=== PATIENT | female | born 1960 | race Two or more races ===

== ENCOUNTER 2016-12-24 06:28 | Day surgery (SDC) | payer OTHER ==
--- NOTE | 2016-12-23 12:25 | Pre-Procedure Note/Attestation ---
Pre-Procedure Note/Attestation Complete Prior to Procedure Planned Procedure: left Procedure Narrative: left shoulder scope, sad, mini urbano, resection of loose fragment, possible rtc repair Indications for Procedure Pre-Operative Diagnosis: left shoulder loose fragments, partial thickness rtc tear Attestation I attest that I discussed the nature of the procedure; its benefits; risks and complications; and alternatives (and the risks and benefits of such alternatives ), prior to the procedure, with the patient (or the patient's legal outside sales representative). I attest that, if there was a reasonable possibility of needing a blood transfusion, the patient (or the patient's legal outside sales representative) was given the [place] [employer] [facility] standardized written summary, pursuant to the Venkat Finklea Blood Safety Act ([place] Health and Safety Code # 1645, as amended). I attest that I re-evaluated the patient just prior to the surgery and that there has been no change in the patient's H&P, except as documented below: NONE PAUL ROSSI Dec 23, 2016 12:25
[2016-12-24] VITALS (11 sets, daily range): BP systolic 122–152; BP diastolic 72–84
[~2016-12-24] VITALS: Ht 157.5 cm; Wt 102.5 kg
[~2016-12-24 06:28] MED LIST: ceFAZolin 1gm in D5W 55ml IVP ONE; celeBREX 200mg Cap **SURGERY PATIENTS ONLY ORAL ONE; oxyCONTIN 20mg tab ORAL ONE
[2016-12-24] MEDS ORDERED: IBUPROFEN200 MG ORAL (07:22)
[2016-12-24] MEDS ORDERED: CYMBALTA30 MG ORAL (07:22)
[2016-12-24] MEDS ORDERED: ASPIR 8181 MG ORAL (07:22)
[2016-12-24] MEDS ORDERED: LIPITOR80 MG ORAL (07:22)
[2016-12-24] MEDS ORDERED: NORCO 5-325 TA1 EAC1 ORAL (07:22)
[2016-12-24] MEDS ORDERED: Bupivacaine w/Epi 0.5% 30ml Vial INJ ONE (07:42)
[2016-12-24] MEDS ORDERED: Ropivacaine 5mg/ml Vial 20ml INJ ONE (07:43)
[2016-12-24] MEDS ORDERED: Succinylcholine 20mg/ml 10ml vial ONE (08:00)
[2016-12-24] MEDS ORDERED: Sodium Chloride 10ml vial INJ ONE (08:00)
[2016-12-24] MEDS ORDERED: Ketorolac 30mg Inj ONE (08:00)
[2016-12-24] MEDS ORDERED: Midazolam 2mg/2ml Inj ONE (08:00)
[2016-12-24] MEDS ORDERED: fentaNYL 100 mcg/2 mL IV ONE (08:00)
[2016-12-24] MEDS ORDERED: Metoclopramide 10mg/2ml Inj ONE (08:00)
[2016-12-24] MEDS ORDERED: Neostigmine 1mg/ml 10ml Inj ONE (08:00)
[2016-12-24] MEDS ORDERED: Propofol 200mg/20ml IV ONE (08:00)
[2016-12-24] MEDS ORDERED: LR 1000ml ONE (08:00)
[2016-12-24] MEDS ORDERED: Glycopyrrolate 0.2mg/ml 1ml Vial ONE (08:00)
[2016-12-24] MEDS ORDERED: fentaNYL 250mcg/5ml ONE (08:00)
[2016-12-24] MEDS ORDERED: Lidocaine 1% MPF 10mg/ml 5ml ONE (08:00)
[2016-12-24] MEDS ORDERED: NS Irrig 4000ml IRRIG ONE ×2 (08:00→08:41)
[2016-12-24] MEDS ORDERED: Dexamethasone 4mg/ml vial ONE (08:00)
[2016-12-24] MEDS ORDERED: Zemuron 50mg/5ml Inj IV ONE (08:00)
--- NOTE | 2016-12-24 08:52 | Anethesia Preoperative Eval ---
Anesthesia Pre-op PMH/ROS General Date of Evaluation: Dec 24, 2016 Anesthesiologist: Ari ASA Score: ASA 3 Mallampati Score Class I : Soft palate, uvula, fauces, pillars visible Class II: Soft palate, uvula, fauces visible Class III: Soft palate, base of uvula visible Class IV: Only hard plate visible Mallampati Classification: Class III Surgeon: Chrissy Diagnosis: Left incomplete rotator cuff repair Surgical Procedure: Left shoulder arthroscopy, subacromial decompression, mini- urbano repair Anesthesia History: none Family History: no anesthesia problems Allergies: Coded Allergies: No Known Allergies (Unverified , 12/23/16) Medications: see eMAR Past Medical History Cardiovascular: Reports: other - HLD, Denies: HTN, CAD, [place], valve dz, arrhythmia Pulmonary: Reports: HO[place], Denies: asthma, COPD, other Gastrointestinal/Genitourinary: Reports: GERD, Denies: CRI, ESRD, other Neurologic/Psychiatric: Denies: dementia, CVA, depression/anxiety, TIA, other Endocrine: Denies: DM, hypothyroidism, steroids, other HEENT: Denies: cataract (L), cataract (R), glaucoma, POINT LAY IRA (L), POINT LAY IRA (R), other Hematology/Immune: Denies: anemia, DVT, bleeding disorder, other Musculoskeletal/Integumentary: Denies: OA, RA, DJD, DDD, edema, other Other: obesity - morbid PSxH Narrative: c/s, umbilical hernia repair Anesthesia Pre-op Phys. Exam Physician Exam Last Vital Signs Date Time Temp Pulse Resp B/P (MAP) Pulse Ox O2 Delivery O2 Flow Rate FiO2 12/24/16 07:17 98.1 73 18 130/84 95 Room Air Constitutional: NAD Cardiovascular: other - tachy Respiratory: other - dimished breath sounds bilaterally, bilateral rhonchi Airway Exam Mallampati Score: Class III MO: limited Neck: obese TMD: <2FB ROM: limited Teeth: missing, intact, broken Anesthesia Pre-op A/P Labs see chart Studies Pre-op Studies: EKG - sr Risk Assessment & Plan Assessment: ASA III Plan: GA, Left interscelene nerve block Status Change Before Surgery: No Pre-Antibiotics Drug: Ancef 2g Given Within 1 Hr of Incision: Yes HUGO MONTGOMERY M.D. Dec 24, 2016 08:52
--- NOTE | 2016-12-24 08:53 | Immediate Post-Op Evaluation ---
Immediate Post-Op Evalulation Immediate Post-Op Evalulation Procedure: Left shoulder arthrosocpy, subacromial decompression, mini-urbano repair Date of Evaluation: Dec 24, 2016 IV Fluids: 1L Blood Products: 0 Estimated Blood Loss: 5 Urinary Output: 0 Blood Pressure Systolic: 136 Blood Pressure Diastolic: 88 Pulse Rate: 91 Respiratory Rate: 16 O2 Sat by Pulse Oximetry: 96 Temperature (Fahrenheit): 97 Pain Score (1-10): 0 Nausea: No Vomiting: No Complications 0 Patient Status: awake, reacts, patent, none Hydration Status: adequate Drug: Ancef 2g Given Within 1 Hr of Incision: Yes Time Given: 08:25 HUGO MONTGOMERY M.D. Dec 24, 2016 08:53
[2016-12-24] MEDS ORDERED: LR 1000ml 1,000 ML IVLG SCH (08:54)
--- NOTE | 2016-12-24 08:54 | 48 Hour Post Anesthesia Eval ---
Post Anesthesia Evaluation Procedure: Left shoulder arthrosocpy, subacromial decompression, mini-urbano repair Date of Evaluation: Dec 24, 2016 Airway: patent Nausea: No Vomiting: No Pain Intensity: 0 Hydration Status: adequate Cardiopulmonary Status: at baseline Mental Status/LOC: patient returned to baseline Post-Anesthesia Complications: 0 Follow-up care needed: ready to discharge HUGO MONTGOMERY M.D. Dec 24, 2016 08:54
[2016-12-24] MEDS ORDERED: Midazolam 2mg/2ml Inj IVP PRN (09:00)
[2016-12-24] MEDS ORDERED: DiphenhydrAMINE 50mg/ml Inj IVP PRN (09:00)
[2016-12-24] MEDS ORDERED: LORazepam Inj 2mg/ml 1ml IV PRN (09:00)
[2016-12-24] MEDS ORDERED: fentaNYL 100 mcg/2 mL IV PRN (09:00)
[2016-12-24] MEDS ORDERED: Hydromorphone 0.5mg/0.5ml inj IVP PRN (09:00)
[2016-12-24] MEDS ORDERED: Ketorolac 30mg Inj IV PRN (09:00)
[2016-12-24] MEDS ORDERED: Metoclopramide 10mg/2ml Inj IVP PRN (09:00)
--- NOTE | 2016-12-24 09:40 | Brief Operative Note ---
Immediate Post Operative Note Operative Note Chief Complaint: left shoulder pain Pre-op Diagnosis: left shoulder loose fragment Procedure: left shoulder scope, resection of loose fragment, sad, stan urbano Post-op Diagnosis: same as pre-op Findings: consistent w/pre-op dx studies Surgeon: md niko [employer] Senior Sergeant: scar kilpatrick Anesthesiologist: md isa Anesthesia: general Specimen: yes Complications: none Condition: stable Fluids: NS Estimated Blood Loss: minimal Drains: none Implant(s) used?: No ELVIA KILPATRICK Dec 24, 2016 09:40
[2016-12-24] MEDS ORDERED: HYDROmorphone 1mg/ml Carpuject SUBQ PRN (16:01)
[2016-12-24] MEDS ORDERED: D5 1/2NS 1,000 ML IV SCH (16:01)
[2016-12-24] MEDS ORDERED: Tylenol #3 tab (300mg/30mg) ORAL PRN (16:01)
[2016-12-24] MEDS ORDERED: Norco 5mg/325mg tab ORAL PRN (16:01)
--- NOTE | 2016-12-24 19:45 | Operative Note - Dictated ---
DATE OF OPERATION: 12/24/2016 PREOPERATIVE DIAGNOSES: 1. Left shoulder arthritis. 2. Left shoulder loose fragment. 3. Left shoulder possible rotator cuff tear. POSTOPERATIVE DIAGNOSES: 1. Left shoulder diffuse glenohumeral arthritis involving two-third of the glenoid and anterior one-half of the humeral head with bone to bone contact. 2. Left shoulder anterior loose fragment measuring 1 x 1.5 centimeter anteriorly in front of the coracoid. 3. Significant degenerative labral tearing anteriorly as well as posteriorly. 4. Unstable meso-acromion with impingement. 5. Articular-sided rotator cuff tear measuring 25% articular sided rotator cuff without full-thickness tear. PROCEDURES: 1. Left shoulder arthroscopy and extensive intra-articular shaving. 2. Left shoulder resection of anterior loose fragment measuring 1 x 1.5 centimeter. 3. Left shoulder debridement and repair of the degenerative labral tear anteriorly as well as posteriorly to a stable zone. 4. Left shoulder subacromial bursoscopy, bursectomy and resection of unstable meso-acromion. 5. Left shoulder mini-Urbano procedure (resection inferior 30% of distal end of clavicle to remove bone spur). 6. Debridement of the articular sided rotator cuff repair without need for repair of the rotator cuff. SURGEON: Rod Lowe M.D. MAJOR DONOR COORDINATOR: Nani Mireles PA-C. Technical Healthcare Consultant was present during the actual operative portion of the case and was important and essential part of the operation. During the operation, the furniture removalist's assistant held and operated the arthroscopic camera for visualization, assisted by manipulating the arm to help with visualization, and helped with essential parts of the repair process as necessary such as operating surgical instruments under surgeon supervision, suture management, and wound closures. ANESTHESIOLOGIST: Cheryl Chapman M.D. ANESTHESIA: General LMA anesthesia combined with interscalene block. EBL: Minimal. COMPLICATIONS: None. SURGICAL INDICATION: The patient is a 56-year-old female who sustained the above injury to her shoulder. The patient was treated non-operative initially, but this did not alleviate the patients symptoms. Therefore, after discussing all non-surgical and surgical options, and discussing all foreseeable risk and benefits of surgery, the patient opted for surgical treatment as described above. PATIENT POSITIONING: The patient was brought to the operating room table and was placed on the operating room table. All pressure points were well padded. General anesthesia was induced and patient was then placed in the lateral decubitus position. All pressure points were well padded again and an axillary roll was placed. Patient shoulder was then prepped and draped in the usual sterile fashion. Time out was performed and the appropriate preoperative antibiotic was given by the anesthesiologist. EXAMINATION OF SHOULDER UNDER ANESTHESIA: The shoulder was examined under anesthesia with all muscles well relaxed. The shoulder was forward flexed, abducted and was placed through full range of external and internal rotation. The anterior, posterior, and inferior stability of the shoulder was checked. The exam revealed no evidence of adhesive capsulitis and no evidence of instability. PORTAL PLACEMENT: The posterior portal was established 2cm inferior and 1cm medial to the edge of the posterior acromion. 1 cm skin incision was made using an eleven blade and using the blunt obturator, the cannula was gently placed through the capsule. The midglenoid portal was established just lateral to the coracoid process under direct visualization. Direction of the cannula was first established using a spinal needle, and subsequently, the cannula was placed through the capsule with a blunt obturator. DIAGNOSTIC ARTHROSCOPY: The biceps tendon was probed and pulled through the joint for visualization. It appeared normal. The biceps anchor was palpated with a probe and was visualized. There was some degenerative superior labral tearing. However, there was no detachment of the biceps tendon. The posterior labrum and axillary recess was visualized. There was synovitis in the axillary recess, however, the posterior labrum was intact. There was extensive chondral damage over the glenoid in the two-third of the glenoid anteriorly as well as inferiorly as well as superiorly. This was consistent with grade 4 chondromalacia of the glenoid. The articular surface of the rotator cuff was visualized and probed next. There was articular-sided rotator cuff tear involving 25% of the thickness of the supraspinatus. The Humeral head articular surface was then visualized. There was humeral head articular cartilage damage involving the anterior half of the humeral head with grade 4 chondromalacia in that area. Next the anterior labrum, middle gleno-humeral ligament, subscapularis tendon, and the anterior inferior gleno-humeral ligament were evaluated. There was significant degenerate changes of the anterior labrum. There was a loose fragment anteriorly. The middle glenohumeral ligament and subscapularis anterior and inferior glenohumeral ligament were intact. At this point, the scope was moved to the midglenoid portal and the posterior structures including the posterior labrum, posterior capsule and posterior cuff were visualized. These structures were completely normal. There was loose fragment in subscapularis recess and the anterior aspect of the shoulder. The middle and anterior inferior glenohumeral ligament was visualized. There was hypertrophy of the glenohumeral ligaments, although there were generally intact. OPERATIVE DEBRIDEMENTS AND REPAIR: Care was given to all partial thickness tears and frayed structures in the shoulder joint. The frayed rotator cuff and labrum was debrided using a shaver initially through the anterior portal and subsequently through the posterior portal to complete the debridement. This allowed for smooth debridement of all affected structures and all loose fragments were removed. The 1.5 centimeter loose fragment in the subscapularis recess was removed with a grasper and was sent to pathology for identification. DIAGNOSTIC BURSOSCOPY AND SUBACROMIAL DECOMPRESSION: The subacromion bursa was entered from posterior portal. The anterior portal was established under CA ligament using a switching stick. Subacromial arthroscopy was initiated. There was extensive bursitis and thickened and inflamed bursal tissue. The CA ligament appeared to be scuffed and frayed. The anterior acromion was visualized and there was very unstable meso-acromion that could be identified. At this point, a shaver was placed through the initial anterior cannula and debridement was performed. The lateral portal was then established and using combination of shaver and electrocautery, CA ligament was released from undersurface of the meso-acromion and complete bursectomy was accomplished. Again, the meso-acromion was very unstable. At this point, using combination of a grasper and burs, the complete meso-acromion resection was performed without any complication. This provided excellent decompression of the subacromial space. This was taken all the way medially to level of the AC joint and to the posterior aspect of the clavicle. The subacromial decompression was not performed beyond posterior aspect of the clavicle. At this point, all bursa over the rotator cuff was removed. Rotator cuff was examined with the probe. The arm was placed through internal and external rotation and there was no evidence of rotator cuff tear. The scope was then placed in the lateral portal at this point and the meso-acromion resection was checked and appeared to be perfect. EVALUATION OF DISTAL CLAVICLE AND DISTAL CLAVICLE RESECTION: Care was given to the distal end of the clavicle. Using electrocautery and zulma, the distal end of the bursa and soft tissue around the distal end of the clavicle was debrided and cleaned. Care was given not to inflict excessive trauma to the ligaments of the AC joint. The distal end of the clavicle appeared to have an inferior osteophyte extending down well bellow the level of the acromion at the level of the AC joint. This appeared to be impinging onto the supraspinatous muscle belly and the musculotendenous junction of the rotator cuff. A mini-urbano procedure was performed by using a mariia to resect the inferior 30% of the distal end of the clavicle. This decompression allowed space for the inferior structures to slide without impingment. This co-plained the inferior edge of the distal clavicle with the inferior edge of the acromion. CONDITION AT DISCHARGE FROM OPERATING ROOM: The skin was re-approximated and sterile dressing and sling were applied. All lap counts and instrument counts were correct. The patient tolerated the procedure well without complications and was taken to the recovery room in stable condition. Rod Lowe M.D. DR: TERESA JOB#: [id number] CC: [id number]
== END 2016-12-24 14:05 | disposition home or self-care (01) ==
LOC: SUR 06:28
DX: M75.112 Incomplete rotator cuff tear or rupture of left shoulder, not specified as traumatic (principal); M24.012 Loose body in left shoulder; M19.011 Primary osteoarthritis, right shoulder; M25.812 Other specified joint disorders, left shoulder
CPT/HCPCS: 23929; 29819; 29822; 29824; J0330; J0690; J1100; J1885; J2250; J2405; J2704; J2710; J2765; J2795; J3010; J7120; 94003; 94150